=== PATIENT | male | born 1970 | race Caucasian/White ===

== ENCOUNTER 2020-03-18 12:11 | Emergency (ER) | payer OTHER ==
[~2020-03-18] VITALS: Ht 177.8 cm; Wt 106.6 kg
[2020-03-18 12:17] VITALS: BP_SYST 159
[2020-03-18 14:39] VITALS: BP_SYST 142
[2020-03-18] MEDS ORDERED: DIPH-TET-PERTUS Vaccine 0.5 ML VIAL (ADACEL) I.M. ONE (14:45)
== END 2020-03-18 14:40 | disposition home or self-care (01) ==
LOC: SED 12:11
DX: S61.012A Laceration without foreign body of left thumb without damage to nail, initial encounter (principal); X78.1XXA Intentional self-harm by knife, initial encounter; Y93.89 Activity, other specified; Y92.89 Other specified places as the place of occurrence of the external cause; Y99.8 Other external cause status
CPT/HCPCS: 90715; 99283